=== PATIENT | female | born 1950 | race Caucasian/White ===

== ENCOUNTER 2019-04-13 23:54 | Emergency (ER) | payer MEDICARE ==
[2019-04-14] MEDS ORDERED: ONDANSETRON HCL INJ/PF 4 MG/2 ML SDV IV ONE (01:40)
--- NOTE | 2019-04-14 01:57 | ER Document Report ---
ED Medical Screen (RME) - General Chief Complaint: Abdominal Pain Stated Complaint: ABDOMINAL PAIN Time Seen by Provider: 04/14/19 01:39 Mode of Arrival: Ambulatory Information source: Patient Notes: 68-year-old female patient presenting to the emergency department with chief complaint of right side abdominal pain. Patient reports she has had an umbilical hernia, she states she believes she made this worse after moving some furniture. She also reports frequency with urination, nausea and dry heaves. She denies any fevers. Exam: Patient alert, oriented, no acute distress noted. Abdomen soft, possible hernia noted in the umbilical area, no obvious redness. Mild tenderness. I have greeted and performed a rapid initial assessment of this patient. A comprehensive ED assessment and evaluation of the patient, analysis of test results and completion of the medical decision making process will be conducted by additional ED providers. I have specifically instructed the patient or family members with the patient to immediately return to any nursing staff should anything change in the patient's condition or with their chief complaint. TRAVEL OUTSIDE OF THE [place] IN LAST 30 DAYS: No Physical Exam - Vital signs Vitals: Temp Pulse BP Pulse Ox 98.7 F 65 153/87 H 95 04/14/19 00:09 04/14/19 00:09 04/14/19 00:09 04/14/19 00:09 Course - Vital Signs Vital signs: Temp Pulse Resp BP Pulse Ox 98.7 F 65 153/87 H 95 04/14/19 00:09 04/14/19 00:09 04/14/19 00:09 04/14/19 00:09
[2019-04-14 02:25] LABS: ABSOLUTE LYMPHOCYTES (AUTO) 1.8 10^3/uL (0.5-4.7); ABSOLUTE MONOCYTES (AUTO) 0.4 10^3/uL (0.1-1.4); ABSOLUTE NEUT (AUTO) 10.8 10^3/uL (1.7-8.2); BASOPHILS % (AUTO) 0.3 % (0-2); HEMATOCRIT 43.2 % (36.0-47.0); HEMOGLOBIN 14.7 g/dL (12.0-15.5); LYMPHOCYTES % (AUTO) 13.6 % (13-45); MEAN CORPUSCULAR HEMOGLOBIN 29.2 pg (27.0-33.4); MEAN CORPUSCULAR HGB CONC 34.1 g/dL (32.0-36.0); MEAN CORPUSCULAR VOLUME 86 fl (80-97); MONOCYTES % (AUTO) 2.9 % (3-13); PLATELET COUNT 281 10^3/uL (150-450); RED BLOOD COUNT 5.04 10^6/uL (3.72-5.28); RED CELL DISTRIBUTION WIDTH 15.1 % (11.5-14.0); SEGMENTED NEUTROPHILS % (AUTO) 83.2 % (42-78); TOTAL CELLS COUNTED % (AUTO) 100 %
[2019-04-14 02:33] LABS: APPEARANCE,URINE SLIGHTLY-CLOUDY; BILIRUBIN,URINE NEGATIVE (NEGATIVE); COLOR,URINE YELLOW; GLUCOSE, URINE 50 mg/dL (NEGATIVE); KETONES,URINE 20 mg/dL (NEGATIVE); LEUKOCYTE ESTERASE,URINE TRACE (NEGATIVE); NITRITE,URINE NEGATIVE (NEGATIVE); PROTEIN,URINE 30 mg/dL (NEGATIVE); URINE SPECIFIC GRAVITY 1.016; UROBILINOGEN,URINE NEGATIVE mg/dL (<2.0)
[2019-04-14 02:44] LABS: ALBUMIN 4.1 g/dL (3.5-5.0); ALKALINE PHOSPHATASE 72 U/L (38-126); ANION GAP 11 (5-19); ASPARTATE AMINO TRANSFERASE 20 U/L (14-36); BILIRUBIN,DIRECT 0.2 mg/dL (0.0-0.4); BILIRUBIN,TOTAL 0.6 mg/dL (0.2-1.3); BLOOD UREA NITROGEN 13 mg/dL (7-20); CALCIUM 9.8 mg/dL (8.4-10.2); CARBON DIOXIDE 24 mmol/L (22-30); CHLORIDE 101 mmol/L (98-107); GLUCOSE 121 mg/dL (75-110); POTASSIUM 3.8 mmol/L (3.6-5.0); TOTAL PROTEIN 6.7 g/dL (6.3-8.2)
[2019-04-14] MEDS ORDERED: NORMAL SALINE 1000 ML 1,000 ML IV ONE (03:10)
--- NOTE | 2019-04-14 03:17 | ER Document Report ---
ED GI/ - General Chief Complaint: Abdominal Pain Stated Complaint: ABDOMINAL PAIN Time Seen by Provider: 04/14/19 01:39 Mode of Arrival: Ambulatory Information source: Patient Notes: 68-year-old female presented to ED for complaint of lower abdominal pain. She states she does have a dull chronic pain but this pain is much worse. She states is not in her normal hernia site. She states she was moving some furniture and may have caused new hernias but she is also got elevated white count. She states she has had some frequency of urine with nausea and dry heaves but no fever. TRAVEL OUTSIDE OF THE [place] IN LAST 30 DAYS: No - HPI Patient complains to provider of: Abdominal pain, Vomiting Timing/Duration: Gradual Quality of pain: Sharp Severity at maximum: Moderate Severity in ED: Moderate Pain Level: 3 Location: LLQ, RLQ Menstrual period history: Post-menopausal Associated symptoms: Nausea, Vomiting Exacerbated by: Movement, Food Relieved by: Denies Similar symptoms previously: Yes Recently seen / treated by doctor: No - Related Data Allergies/Adverse Reactions: No Known Allergies Allergy (Verified 04/14/19 03:39) Past Medical History - General Information source: Patient - Social History Smoking Status: Current Every Day Smoker Cigarette use (# per day): Yes Smoking Education Provided: Yes - 4 min Family History: Reviewed & Not Pertinent Patient has suicidal ideation: No Patient has homicidal ideation: No - Past Medical History Cardiac Medical History: Reports: Hx Hypercholesterolemia, Hx Hypertension Pulmonary Medical History: Reports: None EENT Medical History: Reports: None Neurological Medical History: Reports: None Endocrine Medical History: Reports: Hx Diabetes Mellitus Type 2 Renal/ Medical History: Reports: None Malignancy Medical History: Reports: None GI Medical History: Reports: Other - Ventral hernia Musculoskeletal Medical History: Reports Hx Arthritis Skin Medical History: Reports None Psychiatric Medical History: Reports: Hx Anxiety Traumatic Medical History: Reports: None Infectious Medical History: Reports: None Past Surgical History: Reports: Hx Tubal Ligation, Other - eye surgeries Review of Systems - Review of Systems Constitutional: Recent illness EENT: No symptoms reported Cardiovascular: No symptoms reported Respiratory: No symptoms reported Gastrointestinal: Abdominal pain, Nausea, Vomiting Genitourinary: Frequency, Urgency Female Genitourinary: No symptoms reported Musculoskeletal: No symptoms reported Skin: No symptoms reported Hematologic/Lymphatic: No symptoms reported Neurological/Psychological: No symptoms reported -: Yes All other systems reviewed and negative Physical Exam - Vital signs Vitals: Temp Pulse BP Pulse Ox 98.7 F 65 153/87 H 95 04/14/19 00:09 04/14/19 00:09 04/14/19 00:09 04/14/19 00:09 Interpretation: Normal - General General appearance: Appears well, Alert - HEENT Head: Normocephalic, Atraumatic Eyes: Normal Pupils: PERRL - Respiratory Respiratory status: No respiratory distress Chest status: Nontender Breath sounds: Normal Chest palpation: Normal - Cardiovascular Rhythm: Regular Heart sounds: Normal auscultation Murmur: No - Abdominal Inspection: Normal Distension: No distension Bowel sounds: Hypoactive Tenderness: Tender - Right and left lower abdominal pain. No: McBurney's point, Vincent's sign, Guarding, Rebound Organomegaly: No organomegaly - Back Back: Normal, Nontender - Extremities General upper extremity: Normal inspection, Nontender, Normal color, Normal ROM, Normal temperature General lower extremity: Normal inspection, Nontender, Normal color, Normal ROM, Normal temperature, Normal weight bearing. No: Leroy's sign - Neurological Neuro grossly intact: Yes Cognition: Normal Orientation: AAOx4 [place] Coma Scale Eye Opening: Spontaneous [place] Coma Scale Verbal: Oriented [place] Coma Scale Motor: Obeys Commands Claus Coma Scale Total: 15 Speech: Normal Motor strength normal: LUE, RUE, LLE, RLE Sensory: Normal - Psychological Associated symptoms: Normal affect, Normal mood - Skin Skin Temperature: Warm Skin Moisture: Dry Skin Color: Normal Course - Re-evaluation Re-evalutation: 04/14/19 08:16 I have discussed the results of the CAT scan and ultrasound and labs with the patient. I have also called Dr. Zepeda at [facility] to discuss the large pelvic mass. He states to have the patient call the office and schedule an appointment for follow-up for them to further evaluate this mass. I have given the patient the name and number for [facility]. I have offered her nausea medicine and Zofran and she states she would not fill the prescription so there was no sense writing one. - Vital Signs Vital signs: Temp Pulse Resp BP Pulse Ox 98.6 F 73 18 150/73 H 95 04/14/19 06:58 04/14/19 06:58 04/14/19 06:58 04/14/19 06:58 04/14/19 06:58 - Laboratory Result Diagrams: 04/14/19 02:00 04/14/19 02:00 Laboratory results interpreted by me: 04/14/19 04/14/19 04/14/19 01:10 02:00 02:00 WBC 13.0 H RDW 15.1 H [place] % (Auto) 2.9 L Absolute Neuts (auto) 10.8 H Seg Neutrophils % 83.2 H Sodium 135.8 L Creatinine 0.36 L Glucose 121 H Urine Protein 30 H Urine Glucose (UA) 50 H Urine Ketones 20 H Urine Blood SMALL H Ur Leukocyte Esterase TRACE H - Diagnostic Test Radiology reviewed: Image reviewed, Reports reviewed Discharge - Discharge Clinical Impression: Pelvic mass in female Abdominal pain Qualifiers: Abdominal location: right lower quadrant Qualified Code(s): R10.31 - Right lower quadrant pain Condition: Stable Disposition: HOME, SELF-CARE Additional Instructions: ABDOMINAL PAIN: There are many causes of abdominal pain. Pain can mean a serious problem requiring surgery (such as appendicitis). It can also be an innocent problem that goes away on its own (such as a viral infection). Often, time must pass to determine the cause of pain. The physician does not feel that hospitalization is necessary, at present. Things may change within the next 24 hours. Call the doctor or come back for re- examination if any problems occur, such as: (1) Pain that becomes more severe, steady, or becomes concentrated in one specific area. Also, pain that is more severe with movement or coughing. (2) Vomiting that persists or becomes more frequent. (3) Blood in the vomitus, urine, or bowel movements. Blood in the stool may have a tarry or black appearance. (4) Shaking chills or fever greater than 100 degrees F. (5) The abdomen becomes more distended or swollen. (6) Bowel movements cease. (7) Failure to improve as expected. I have discussed the results of your CAT scan and ultrasound with you. You have a large pelvic mass as we discussed. You need to follow-up with [facility] promptly for this large mass. You also have the mass on your adrenal gland that she states you were aware of and the mass on your lung that you state you are aware of. I have given you a copy of the CT and the ultrasound and all of your lab w ork for your follow-up appointment. [place] MEDICATION: You have been given a medication to suppress nausea and vomiting. This type of medication can be given as a shot, pill, or suppository. It will usually last for many hours. Pills and shots usually last six to eight hours, suppositories last about 12 hours. For the typical illness, only one or two doses of the medication may be necessary. Mild lightheadedness may occur. This type of medicine can cause drowsiness. Do not drive or operate dangerous machinery while under its influence. Do not mix with alcohol. See your doctor at once if you have muscle spasms or tightness, or uncontrollable motions (particularly of the neck, mouth, or jaw). Persistent vomiting or severe lightheadedness should also be evaluated by the physician. FOLLOW-UP CARE: If you have been referred to a physician for follow-up care, call the physicians office for an appointment as you were instructed or within the next two days. If you experience worsening or a significant change in your symptoms, notify the physician immediately or return to the Emergency Department at any time for re-evaluation. Forms: Elevated Blood Pressure, Smoking Cessation Education Referrals: [facility] [Provider Group] - Follow up tomorrow (Please call [facility] and schedule an appointment today for when they can see you for this large pelvic mass)
[2019-04-14] MEDS ORDERED: ONDANSETRON HCL INJ/PF 4 MG/2 ML SDV ONE (04:02)
--- NOTE | 2019-04-14 05:38 | RADIOLOGY REPORT (SQ) ---
CT abdomen and pelvis with contrast on 04/14/2019 at 4:54 AM CLINICAL INDICATION: Lower abdominal pain TECHNIQUE: Multiple axial images are obtained throughout the abdomen and pelvis following the administration of IV contrast, 79 mL of Omnipaque 350 contrast was administered intravenously without complication. This exam was performed according to our departmental dose-optimization program, which includes automated exposure control, adjustment of the mA and/or kV according to patient size and/or use of iterative reconstruction technique. Total DLP is 1222.12 mGy*cm. COMPARISON: None FINDINGS: Abdomen: Large centrally calcified granuloma or hamartoma is noted in the right lung base that should be considered benign with no follow-up recommended. There is mild atelectasis or scarring in the right middle lobe. There is minimal linear atelectasis or scarring in the lung bases. Vascular calcifications are noted. There is a 3.5 cm low-density right adrenal nodule that has some internal calcification. This measures 48 Hounsfield units. Favor this to be benign but this is indeterminate. Would recommend biochemical lab evaluation for pheochromocytoma. If lab volumes are normal then recommend adrenal washout protocol CT or chemical shift MRI. Couple of small hepatic cysts are noted. Small left renal cysts are noted. Solid abdominal organs are otherwise unremarkable. There is no abdominal adenopathy. There is no free fluid or free air within the abdomen. There is a very small hiatal hernia. The abdominal portion of the GI tract is otherwise unremarkable. Pelvis: There is a heterogeneous lobulated pelvic mass in the mid pelvis. This may represent exophytic subserosal fibroid but ovarian lesion is also of concern. Would recommend prompt ultrasound follow-up to better evaluate the pelvis. Small amount of free fluid is noted in the pelvis. There is no pelvic adenopathy. Pelvic portion of the GI tract including the appendix is unremarkable. Degenerative changes and dextroscoliosis is noted in the spine. IMPRESSION: 1. Heterogeneous pelvic mass is indeterminate as to whether this is uterine, adnexal or ovarian. Recommend prompt ultrasound follow-up. 2. Right adrenal nodule with follow-up recommendations as above. 3. Very small hiatal hernia.
--- NOTE | 2019-04-14 07:39 | RADIOLOGY REPORT (SQ) ---
EXAM DESCRIPTION: US PELVIS TRANSVAGINAL COMPLETED DATE/TME: 04/14/2019 05:52 CLINICAL HISTORY: 68 years Female, pelvic mass on ct Comparison: CT, same day. Technique: Transabdominal and transvaginal. LIMITATIONS: None. FINDINGS: Complex heterogeneous solid left paramedial adnexal mass measures 6.5 x 6.9 x 5.0 cm with some vascularity. Small free pelvic fluid at the cul-de-sac. 4.8-cm uterus, 0.3-cm endometrial stripe thickness, and nonvisualized right ovary appear otherwise unremarkable in size, shape, echotexture, and vascularity. IMPRESSION: 1. 6.5 cm left paramedial pelvic/adnexal mass. Small free pelvic fluid. Differential etiologies include pedunculated fibroid and ovarian neoplasm. [employer] [facility] surgical consultation advised. 2. Endometrial atrophy.
[2019-04-14 08:07] VITALS: BP 144/66
== END 2019-04-14 08:19 | disposition home or self-care (01) ==
LOC: ER 23:54
DX: R19.00 Intra-abdominal and pelvic swelling, mass and lump, unspecified site (principal); R10.31 Right lower quadrant pain; R11.2 Nausea with vomiting, unspecified; F17.210 Nicotine dependence, cigarettes, uncomplicated; E78.00 Pure hypercholesterolemia, unspecified; I10 Essential (primary) hypertension; E11.9 Type 2 diabetes mellitus without complications; Z98.51 Tubal ligation status
CPT/HCPCS: 99406; 99284; 96361; 96374; 36415; 83690; 85025; 80053; 81001; 76830; 74177; J2405; J7030